=== PATIENT | female | born 1985 | race Caucasian/White ===

== ENCOUNTER → 2016-12-10 | Outpatient (CLI) | payer OTHER ==
[~2016-12-10] VITALS: Ht 160 cm; Wt 111.6 kg
[~2016-12-10] MED LIST: AMOXICILLIN500 M1 PO; CHROMAGEN,1 CAPSULE PO; CLARITIN10 M3 PO; ENDOCET 5-3251 EACH PO; IBUPROFEN800 MG PO; KEFLEX500 MG PO; MIRENA1 EACH IY; NAPROSYN500 MG PO; PREDNISONE50 MG PO; PRENATAL TABLE1 EAC3 PO; PRILOSEC20 MG PO; PROMETRIUM200 M1 PO; VENTOLIN HFA18 GM IH; ZITHROMAX Z-PA250 MG PO; ZYRTEC10 M2 PO
== END | disposition home or self-care (01) ==
LOC: AMB 07:24
PROC: 0DB68ZX Excision of Stomach, Via Natural or Artificial Opening Endoscopic, Diagnostic (ICD-10-PCS; principal; 2016-12-10)
DX: K29.70 Gastritis, unspecified, without bleeding (principal); K22.10 Ulcer of esophagus without bleeding; Z90.49 Acquired absence of other specified parts of digestive tract; B18.2 Chronic viral hepatitis C; Z86.32 Personal history of gestational diabetes
CPT/HCPCS: 88305; 88342 TC; J2250; J3010